=== PATIENT | female | born 1965 | race Caucasian/White ===

== ENCOUNTER 2017-04-01 18:25 | Emergency (ER) | payer OTHER ==
[~2017-04-01] VITALS: Ht 149.9 cm; Wt 65.9 kg
[2017-04-01] MEDS ORDERED: FOLI1TAB4 PO (18:55)
[2017-04-01] MEDS ORDERED: THYROID MEDICINE PO (18:55)
[2017-04-01] MEDS ORDERED: NEXI2.5G PO (18:55)
[2017-04-01] MEDS ORDERED: LIPI20TA PO (18:55)
[2017-04-01] MEDS ORDERED: GI COCKTAIL 50ML BTL(HYOSCYAMINE/MAALOX/LIDOCAINE VISCOUS)(1:3:1) PO ONE (19:30)
[2017-04-01] MEDS ORDERED: ASPIRIN 81 MG CHEW TABLET PO ONE (19:30)
[2017-04-01 19:58] LABS: BASO % 0.7 % (0.0-1.0); EOS # 0.1 10^3/uL (0.0-0.50); IMMATURE GRANULOCYTE % 0.2 % (0-0); LYMPH % 33.4 % (24.0-44.0); MEAN CORPUSCULAR HGB CONC 33.4 g/dl (32.0-36.5); MEAN CORPUSCULAR VOLUME 92.6 fl (80.0-96.0); MONO # 0.6 10^3/uL (0.0-0.8); MONO % 10.5 % (0.0-5.0); NEUTROPHILS # 3.2 10^3/uL (1.8-7.7); NEUTROPHILS % 53.2 % (36.0-66.0); PLATELET COUNT, AUTOMATED 392 10^3/uL (150-450); RED CELL DISTRIBUTION WIDTH 15.3 % (11.5-14.5)
[2017-04-01 20:21] LABS: ANION GAP 8 MEQ/L (8-16); BLOOD UREA NITROGEN 9 MG/DL (7-18); CALCIUM LEVEL 9.7 MG/DL (8.5-10.1); CARBON DIOXIDE LEVEL 24 MEQ/L (21-32); CHLORIDE LEVEL 106 MEQ/L (98-107); CREATININE FOR GFR 0.77 MG/DL (0.55-1.02); GLOMERULAR FILTRATION RATE > 60.0 (>51); GLUCOSE, FASTING 80 MG/DL (70-105); POTASSIUM SERUM 4.1 MEQ/L (3.5-5.1); SODIUM LEVEL 138 MEQ/L (136-145)
[2017-04-01] MEDS ORDERED: ISOVUE-370 76% 100ML VIAL (Q9967) As Ordered ONE (21:23)
--- NOTE | 2017-04-01 22:10 | REPUSA ---
CT angiogram of the chest Clinical statement: Chest pain and shortness of breath. Technique: Multiple axial CT images were obtained from the thoracic inlet through the upper abdomen a fter a bolus administration of nonionic intravenous contrast. Coronal and sagittal reconstructions we re also obtained. No comparison is available. Findings: The pulmonary arteries are well-opacified with contrast, with no intraluminal filling defec ts to suggest embolism. The thoracic aorta is unremarkable. Thyroid gland is within normal limits. Th ere is no thoracic lymphadenopathy. There are no pericardial or pleural effusions. The lungs are francie r of acute infiltrates. Chronic interstitial changes are seen in the right upper lobe. Limited imagin g of the upper abdomen is unremarkable. There are no suspicious osseous lesions. Impression: Unremarkable CT examination of the chest. No evidence of pulmonary embolism. Chronic inte rstitial changes in the right lung suggests mild COPD.
[2017-04-01 23:03] VITALS: BP 127/89
--- NOTE | 2017-04-02 05:48 | ECGEPIP ---
Stationary ECG Study [facility] - ED Test Date: 2017-04-01 Pat Name: PATRICE BUCHANAN Department: Room: - Gender: F [employer] Work[employer]: LevyB: 1965 Requested By: ALEC Joe Order Number: [id number] Reading MD: Jeramie Myers Measurements Intervals [place] Rate: 78 P: 31 NV: 154 QRS: 21 QRSD: 82 T: 18 QT: 403 QTc: 461 Interpretive Statements SINUS RHYTHM LEFT ATRIAL ENLARGEMENT NSTTW ABNORMALITIES NO PRIORS Electronically Signed On 04-02-2017 5:47:49 EDT by Jeramie Myers
--- NOTE | 2017-04-03 16:56 | ECGEPIP ---
Stationary ECG Study [facility] - ED Test Date: 2017-04-01 Pat Name: CORA BUCHANAN Department: Room: - Gender: F [employer]ding [employer] Operator: : 1965 Requested By: JUAN CARLOS [place] Order Number: [id number] Reading MD: Jeramie Myers Measurements Intervals [place] Rate: 86 P: 33 NC: 142 QRS: 24 QRSD: 77 T: 17 QT: 396 QTc: 475 Interpretive Statements SINUS RHYTHM POSSIBLE LEFT ATRIAL ENLARGEMENT NO PRIORS Electronically Signed On 04-03-2017 16:56:27 EDT by Jeramie Myers
== END 2017-04-01 23:19 | disposition home or self-care (01) ==
LOC: M ED 18:25
DX: R07.89 Other chest pain (principal); J98.4 Other disorders of lung; I25.2 Old myocardial infarction; Z79.899 Other long term (current) drug therapy; F17.210 Nicotine dependence, cigarettes, uncomplicated
CPT/HCPCS: 71275; 80048; 82550; 82553; 85025; 93005; 93041; 94760; 99285; Q9967